=== PATIENT | male | born 1965 ===

== ENCOUNTER 2016-11-16 09:25 | Day surgery (SDC) | payer BC ==
[~2016-11-16 09:25] MED LIST: Buffered Lidocaine 0.9% SYRIN* 5 ML/SYR SYRINGE INTRADERM ONE; Buffered Lidocaine 0.9% SYRIN* 5 ML/SYR SYRINGE ONE; NS 0.9% 1000 ML* 1,000 ML IV SCH; ceFAZolin 2 GM PREMIX(*) 2 GM/50 ML BAG IVPB ONE
[2016-11-16] MEDS ORDERED: Famotidine IV* 10 MG/ML 2 ML (20 mg) ONE (11:00)
[2016-11-16] MEDS ORDERED: Midazolam* 1 MG/ML 2 ML VIAL (2 MG) ONE (11:00)
[2016-11-16] MEDS ORDERED: Bupivacaine 0.5% SDV PF* 30 ML VIAL ONE (11:18)
[2016-11-16] MEDS ORDERED: Propofol* 10 MG/ML 20 ML BTL IV PUSH ONE (11:40)
[2016-11-16] MEDS ORDERED: Lidocaine 2% PF * 5 ML VIAL ONE (11:40)
[2016-11-16] MEDS ORDERED: fentaNYL* 50 MCG/ML 2 ML VIAL (100 MCG VIAL) ONE (11:44)
[2016-11-16] MEDS ORDERED: KETAMINE HCL* 50 MG/ML 10 ML VIAL ONE (11:44)
[2016-11-16] MEDS ORDERED: DiMENhydriNATE IV* 50 MG/ML VIAL IV PUSH PRN (11:48)
[2016-11-16] MEDS ORDERED: Acetaminophen TAB* 325 MG PO PRN (11:48)
[2016-11-16] MEDS ORDERED: PROCHLORPERAZINE INJ 5 MG/ML 2 ML VIAL IV PRN (11:48)
[2016-11-16] MEDS ORDERED: Ondansetron INJ* 2 MG/ML VIAL IV PRN (11:48)
[2016-11-16] MEDS ORDERED: Lidocaine 2% PF* 10 ML AMP ONE ×2 (11:50→12:10)
[2016-11-16 12:47] VITALS: BP 125/64
--- NOTE | 2016-11-17 07:57 | OP ---
DATE OF OPERATION: 11/16/16 [facility] DATE OF : 67 SURGEON: Isaiah Nix MD BAND HEAD SAW OPERATOR: Elaine Pringle PA-C ANESTHESIOLOGIST: Dr. 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 OPERATIVE PROCEDURE: First ray amputation, right foot. DESCRIPTION OF PROCEDURE: The patient was taken to the operating room where MAC anesthesia was administered. With the ankle Esmarch raised, we made a transverse elliptical incision around the base of the great toe and then proximally just dorsal and plantar to the medial eminence ulcer. Through this incision, we dissected dorsal and plantar to the proximal aspect of the first metatarsal, which was transected with a microsagittal saw. We then dissected distally around the metatarsal and through the circumferential incision at the base of the phalanx to disarticulate the first ray. We irrigated this area thoroughly dropping the ankle Esmarch and obtaining local hemostasis. Repair of the soft tissues were with 0 Vicryl for dorsal plantar and 2-0 Surgipro for the skin edges. A compression dressing and plaster splint was applied. Local cultures were sent intraoperatively. [id number]/[facility] #: [id number] MTDJenelle
== END 2016-11-16 13:16 | disposition home or self-care (01) ==
LOC: OR 09:25
PROVIDERS: ATTEND Orthopaedic Surgery
DX: M86.671 Other chronic osteomyelitis, right ankle and foot (principal); E11.9 Type 2 diabetes mellitus without complications; Z79.4 Long term (current) use of insulin; C19 Malignant neoplasm of rectosigmoid junction; C78.7 Secondary malignant neoplasm of liver and intrahepatic bile duct; Z87.891 Personal history of nicotine dependence; E78.5 Hyperlipidemia, unspecified; I10 Essential (primary) hypertension; E66.9 Obesity, unspecified
CPT/HCPCS: 87070; 87073; 87077; 87186; 87205; J0690; J2001; J2250; J2704; J3010